=== PATIENT | female | born 1955 | race Caucasian/White ===

== ENCOUNTER 2021-09-28 09:16 | Outpatient (CLI) | payer OTHER, SELFPAY ==
[2021-09-28 13:14] LABS: Albumin* 4.3 g/dL (3.3-5.0); Chloride* 105 mmol/L (96-114)
[2021-09-28 13:15] LABS: Potassium* 4.6 mmol/L (3.6-5.1); Sodium* 140 mmol/L (135-149)
[2021-09-28 13:17] LABS: Alanine Aminotransferase* 17 U/L (4-35); Alkaline Phosphatase* 52 U/L (40-150); Aspartate Amino Transferase* 24 U/L (12-35); Bilirubin Total* 0.7 mg/dL (0.1-1.5); Blood Urea Nitrogen* 19 mg/dL (7-30); Calcium* 9.8 mg/dL (8.4-10.6); Carbon Dioxide* 27 mmol/L (20-32); Cholesterol* 216 mg/dL (90-199); Creatinine* 0.6 mg/dL (0.5-1.5); Estimated Glomerular Filt Rate 100 ml/min; Glucose* 139 mg/dL (60-115); Total Protein* 6.5 g/dL (6.0-8.3); Triglycerides* 142 mg/dL (40-149)
[2021-09-28 13:18] LABS: HDL Cholesterol* 62 mg/dL (>=50); LDL Cholesterol Calculated 126 mg/dL (<100)
[2021-09-28 13:25] LABS: Creatinine Urine 187.4 mg/dL
[2021-09-28 13:28] LABS: Microalbumin Creatinine Ratio 10 mg/g (0-30); Microalbumin Urine 2 mg/dL
== END 2021-09-28 09:17 | disposition home or self-care (01) ==
LOC: NFLDREF 09:17
PROVIDERS: PCP Family Medicine; Visit Provider Family Medicine
DX: E03.9 Hypothyroidism, unspecified (principal); E11.9 Type 2 diabetes mellitus without complications; E78.5 Hyperlipidemia, unspecified; I10 Essential (primary) hypertension; F41.9 Anxiety disorder, unspecified
CPT/HCPCS: 80053; 80061; 82043; 82570; 84443

== ENCOUNTER 2022-04-23 11:10 | Outpatient (CLI) | payer OTHER, SELFPAY ==
--- NOTE | 2022-04-23 11:30 | CRLHL7_ITS ---
For Patients: As a result of the Century Cures Act, medical imaging exams and procedure reports are released immediately into your electronic medical record. You may view this report before your referring provider. If you have questions, please contact your health care provider. BILATERAL SCREENING MAMMOGRAM WITH COMPUTER-AIDED DETECTION TECHNIQUE: CC and MLO views were obtained. These mammographic images have been obtained using full-field digital technique. These mammographic images were interpreted with the benefit of computer-aided detection. COMPARISON FILM: 02/19/21, 08/16/19, 05/04/18. FINDINGS: There are scattered areas of fibroglandular density. IMPRESSION: There is no radiographic evidence for malignancy. ASSESSMENT: BI-RADS Category 1: Negative RECOMMENDATION: Routine screening mammogram in 1 year. A lay language report of this examination will be provided to the patient. BOB CASTANEDA M.D. Diagnostic Radiologist [email or web address] Transcribed: 04/23/2022, 2:[address]/Dictated by: Bob Castaneda MD @ 04/23/2022 2:02:00 PM (Electronically Signed)
== END 2022-04-23 11:11 | disposition home or self-care (01) ==
PROVIDERS: PCP Family Medicine; Visit Provider Family Medicine
DX: Z12.31 Encounter for screening mammogram for malignant neoplasm of breast (principal)
CPT/HCPCS: 77067

== ENCOUNTER 2022-05-04 09:59 | Outpatient (CLI) | payer OTHER, SELFPAY ==
[2022-05-04 14:15] LABS: Albumin* 4.5 g/dL (3.3-5.0)
[2022-05-04 14:16] LABS: Chloride* 107 mmol/L (96-114); Potassium* 4.3 mmol/L (3.6-5.1); Sodium* 143 mmol/L (135-149)
[2022-05-04 14:18] LABS: Bilirubin Total* 0.8 mg/dL (0.1-1.5); Carbon Dioxide* 30 mmol/L (20-32); Cholesterol* 224 mg/dL (90-199); Creatinine* 0.7 mg/dL (0.5-1.5); Estimated Glomerular Filt Rate 95 ml/min
[2022-05-04 14:19] LABS: Alanine Aminotransferase* 19 U/L (4-35); Alkaline Phosphatase* 48 U/L (40-150); Aspartate Amino Transferase* 22 U/L (12-35); Blood Urea Nitrogen* 13 mg/dL (7-30); Calcium* 9.7 mg/dL (8.4-10.6); Glucose* 138 mg/dL (60-115); HDL Cholesterol* 74 mg/dL (>=50); LDL Cholesterol Calculated 127 mg/dL (<100); Total Protein* 7.1 g/dL (6.0-8.3); Triglycerides* 116 mg/dL (40-149)
[2022-05-04 14:30] LABS: Vitamin D 25 Hydroxy* 41 ng/mL (30-80)
[2022-05-04 15:21] LABS: Free T4 Free Thyroxine* 1.21 ng/dL (0.70-1.85)
== END 2022-05-04 10:00 | disposition home or self-care (01) ==
LOC: NFLDREF 09:59
PROVIDERS: PCP Family Medicine; Visit Provider Family Medicine
DX: E03.9 Hypothyroidism, unspecified (principal); E11.9 Type 2 diabetes mellitus without complications; E78.5 Hyperlipidemia, unspecified; I10 Essential (primary) hypertension; M85.80 Other specified disorders of bone density and structure, unspecified site; Z78.0 Asymptomatic menopausal state
CPT/HCPCS: 80053; 80061; 82306; 84439; 84443

== ENCOUNTER 2023-02-11 14:15 | Outpatient (REF) | payer OTHER, SELFPAY ==
[2023-02-11 16:42] LABS: Free T4 Free Thyroxine* 2.48 ng/dL (0.70-1.85)
[2023-02-11 16:56] LABS: Thyroid Stimulating Hormone* 0.639 uIU/mL (0.270-4.20)
== END 2023-02-11 14:16 | disposition home or self-care (01) ==
LOC: NPINS 14:15
PROVIDERS: PCP Family Medicine; Visit Provider Physician Assistant
DX: E03.9 Hypothyroidism, unspecified (principal)
CPT/HCPCS: 84439; 84443